=== PATIENT | male | born 1940 | race Caucasian/White ===

== ENCOUNTER 2019-08-07 12:39 | Inpatient (IN) | payer MEDICARE, OTHER, SELFPAY ==
[2019-08-07] VITALS (10 sets, daily range): BP systolic 114–134; BP diastolic 65–74; PULSE 57–74; RESP 15–18; TEMP 36.6–37; O2SAT 92–98; BMI 26.6; BMI 25.8; BMI 25.9
--- NOTE | 2019-08-07 13:20 | CT_ITS ---
STUDY: CTA CHEST REASON FOR EXAM: Male, 79 years old. HEMOPTYSIS WITH LUNG CANCER. COPD RADIATION DOSAGE (If Supplied By Facility): CTDIvol = ( 11.76 ) mGy, DLP = ( 657.06 ) mGycm TECHNIQUE: The examination was performed with the intravenous administration of 100 ML ISOVUE 370. Post-processing of the angiographic images was performed, with multiplanar reformation and 3D reconstruction. Individualized dose optimization techniques were used for this CT. COMPARISON: None. FINDINGS: Small filling defects are seen in the subsegmental branches of the right lower lobe pulmonary artery. Normal thoracic aorta and visualized great vessels. There is no demonstrated aortic dissection. Normal heart and pericardium. There are visualized mediastinal lymph nodes, which are within normal size limits, and with normal morphology. Slightly enlarged right hilar lymph node. Normal visualized trachea and bronchi. Minimal increased markings at the lung bases suggestive scarring. There is a 6.8 cm x 6 cm soft tissue mass in the right upper lobe adjacent to the right paratracheal region. Mild degree of scarring is seen surrounding the mass lesion. Normal pleura. Normal chest wall structures. There are degenerative changes of thoracic spine. 31.7 cm nodule in the crux of the left adrenal gland. There is also evidence of a 1.3 cm nodule in the crux of the right adrenal gland. Moderate sized hiatal hernia. CT/CTA Chest W/WO Contrast IMPRESSION: Small filling defects in the subsegmental branches of the right lower lobe pulmonary artery. 6.8 cm x 6 mL soft tissue mass in the right upper lobe adjacent to the right paratracheal region. Bilateral adrenal nodules. Electronically Signed: Steve Solares, at 14:55 EDT , Service support ,
--- NOTE | 2019-08-07 13:21 | ED.DCSUM_ITS ---
History of Present Illness Chief Complaint: GI Bleed Detail of Chief Complaint: Hemoptysis Informant: Patient Onset: Today Current Severity: Mild Maximum Severity: Mild Narrative: Patient is a history of lung cancer and is followed with Dr. Cosme. Patient reports developing hemoptysis today. He has had some blood and some blood mixed with mucus. He denies chest pain or shortness of breath. Patient states he had similar symptoms last year that resolved after being put on Levaquin. Patient is currently on Eliquis. - Past Medical History (1) A-fib Status: Chronic (2) Hypertension Status: Chronic (3) High cholesterol Status: Chronic (4) H/O heart artery stent Status: Chronic (5) Asthma Status: Chronic (6) COPD (chronic obstructive pulmonary disease) Status: Chronic (7) Lung cancer Status: Chronic Past Medical History - Allergies and Home Meds Allergies/Adverse Reactions: Allergies No Known Allergies Allergy (Verified 08/07/19 12:43) Primary Care Physician: Satish Knott MD [NON-STAFF] - Doctors: Dr. Cosme Prior records reviewed: Yes Lives: Spouse/ Significant Other Smoking Status: Former smoker Review of Systems General: Denies: Chills, Fever Eyes: Denies: Visual changes - bilaterally ENT: Denies: Bilateral ear pain Cardiovascular: Denies: Chest pain, Palpitations Respiratory: Reports: Cough, Sputum. Denies: Dyspnea Genitourinary: Denies: Dysuria Neurological: Denies: Headache Allergy: Denies: Uticaria Physical Exam Vital Signs/Narrative: Vital Signs Temp Pulse Resp BP Pulse Ox 08/07/19 13:11 63 16 117/71 97 08/07/19 12:40 98.0 F 74 16 131/74 H Inital Vital Signs reviewed: Yes General: Well nourished, Well developed Head: Normocephalic ENT: Moist mucous membranes Neck: Supple Cardiovascular: Regular rate, Regular rhythm Respiratory: No distress, CTA bilaterally Abdomen: Soft, Nontender, Normal bowel sounds Skin: Normal color Neurological: Alert, Oriented x3 Psychological: Normal affect Diagnostic/Tx/Re-eval Impressions Chest CTA 08/07/19 13:20 IMPRESSION: Small filling defects in the subsegmental branches of the right lower lobe pulmonary artery. 6.8 cm x 6 mL soft tissue mass in the right upper lobe adjacent to the right paratracheal region. Bilateral adrenal nodules. Electronically Signed: Steve Solares, at 14:55 EDT , Service support , 08/07/19 13:20 CTA Chest W/WO Contrast [CT] Stat Laboratory Results 08/07/19 08/07/19 08/07/19 13:30 13:30 13:30 WBC 7.0 RBC 2.77 L Hgb 8.9 L Hct 28.6 L MCV 103.2 H MCH 32.1 H MCHC 31.1 L RDW Std Deviation 76.0 H RDW Coeff of Shaheen 20.4 H Plt Count 277 MPV 10.3 Immature Gran % (Auto) 0.600 Neut % (Auto) 71.9 H Lymph % (Auto) 13.6 L White % (Auto) 11.5 H Eos % (Auto) 1.4 Baso % (Auto) 1.0 Absolute Neuts (auto) 5.0 Absolute Lymphs (auto) 0.95 Nucleated RBC % 0 Differential Comment SCANNED Anisocytosis 2+ Microcytosis 1+ Macrocytosis 1+ PT 15.4 H INR 1.2 APTT 31.7 Sodium 137 Potassium 4.6 Chloride 106 Carbon Dioxide 26.0 Anion Gap 5 BUN 25 H Creatinine 1.00 Estim Creat Clear Calc 59.90 Est GFR (MDRD) Af Amer 93 Est GFR (MDRD) Non-Af 77 BUN/Creatinine Ratio 25.0 H Glucose 101 Calcium 8.8 - Medical Decision Making She has been monitored on manager cardiac cath. O2 sats are stable. He continues to have coughing with some bloody sputum. Test results are discussed with the patient. He denies missing any doses of Eliquis. I spoke with patient's oncologist, Dr. Cosme. He is concerned that if the CT scan findings do reveal true acute PE, he has failed Eliquis therapy. I spoke with Dr. Solares. He states these are small subsegmental areas where the vessel did not feel fully. He is not convinced these are acute PEs. After discussion with Dr. Cosme we agreed most conservative course of treatment would be observation in the hospital overnight. We will stop his aspirin and try to control cough. He would likely need to be seen by pulmonary for possible scope. I will speak with hospitalist. ED Disposition - Plan for ED Patient: Disposition: Acute Care Hospital [facility] Diagnosis: Hemoptysis Referrals: Satish Knott MD [NON-STAFF] -
[2019-08-07 13:42] LABS: Absolute Lymphocyte Count 0.95 X10^3/uL (0.83-4.51); Basophil# 0.07 X10^3/uL; Eosinophils% 1.4 % (0-5); Hematocrit 28.6 % (40-54); Hemoglobin 8.9 g/dL (13.0-16.5); Lymphocyte # 0.95 X10^3/ul (4.0); Lymphocyte % 13.6 % (19-41); Mean Corp Hgb Conc 31.1 g/dL (32-36); Mean Corpuscular Hgb 32.1 pg (27.0-32.0); Mean Corpuscular Volume 103.2 fL (80-94); Mean Platelet Vol. 10.3 fl (6.2-12.0); Monocyte% 11.5 % (0-10); NRBC Flagged by Analyzer 0 % (0-5); Neutrophil % 71.9 % (47-70); POSITIVE MORPHOLOGY YES; Platelet Count 277 K/mm3 (150-450); RBC Distribution Width CV 20.4 % (11.6-14.6); Red Blood Count 2.77 M/mm3 (4.6-6.2)
[2019-08-07 13:43] LABS: Differential Indicated SCAN CRITERIA MET
[2019-08-07] MEDS: 0.9% Normal Saline 1,000 ML 150 ML IV (13:47)
[2019-08-07 13:53] LABS: International Normalized Ratio 1.2; Prothrombin Time (Protime)PT. 15.4 SECONDS (11.7-14.9)
[2019-08-07 13:54] LABS: Partial Thromboplast Time 31.7 Seconds (24.1-36.2)
[2019-08-07 14:03] LABS: Differential Comment SCANNED
[2019-08-07 14:04] LABS: Anisocytosis 2+; Macrocytosis 1+; Microcytosis 1+
[2019-08-07 14:05] LABS: Anion Gap 5 (5-15); BUN 25 mg/dL (7-18); Calcium,Total 8.8 mg/dL (8.5-10.1); Chloride 106 mmol/L (98-107); EST Glomerular Filtration Rate 77 mL/min (>60); Est Glom Filt Rate - Afr Amer 93 mL/min (>60); Glucose 101 mg/dL (74-106); Potassium 4.6 mmol/L (3.5-5.1); Sodium Level 137 mmol/L (136-145)
--- NOTE | 2019-08-07 15:51 | NURSING ---
DR CULLEN FOR DR PAYNE
--- NOTE | 2019-08-07 16:13 | NURSING ---
MED SURG OBS SUBHASH HEMOPTYSIS
--- NOTE | 2019-08-07 16:16 | PCM.HP.STD ---
Problem List (1) Hemoptysis Status: Acute (2) A-fib Status: Chronic (3) Asthma Status: Chronic (4) COPD (chronic obstructive pulmonary disease) Status: Chronic (5) H/O heart artery stent Status: Chronic (6) High cholesterol Status: Chronic (7) Hypertension Status: Chronic (8) Lung cancer Status: Chronic History of Present Illness Date of Admission: 08/07/19 Chief Complaint: Hemoptysis today The patient is a 79 year old M gentleman, 50 pack years of his smoking, quit about 1 and half years other comorbidities including chronic A. fib on Eliquis came to ER for hemoptysis today. Patient was seen by Dr. 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 He was supposed to start chemo and radiation. Patient already had 5 cycles of chemo and radiation after diagnosis of small lung cancer in March 2019. Today, patient had hemoptysis on coughing. Patient had similar symptoms last year and resolved on Levaquin. Last 2 to 3 weeks is having clear mucus discharge from nose and sinuses. Denies fever or chills, chronic persistent cough, shortness of breath or chest pain. In ER, CTPA was done which showed 6.8 x 6 cm soft tissue mass in right upper lobe adjacent to right paratracheal region. It also shows enlarged right hilar node with mild compression of right main bronchus. Small filling defect possibly subsegmental branches of right lower lobe but nothing significant as per ER physician when she talked to radiologist Dr. Sevilla. ER physician discussed with Dr. Castaneda and horticultural specialty grower Dr. Avila. In ED, vital signs stable. Pulse ox 95% on room air. No tachycardia or tachypnea. Past Medical History Past Medical History (Chronic Problems): Chronic Problems A-fib (Chronic) Hypertension (Chronic) High cholesterol (Chronic) H/O heart artery stent (Chronic) Asthma (Chronic) COPD (chronic obstructive pulmonary disease) (Chronic) Lung cancer (Chronic) Allergies No Known Allergies Allergy (Verified 08/07/19 12:43) Home Medications: Ambulatory Orders Medication Instructions Recorded Amlodipine [Norvasc] 10 mg PO DAILY 08/07/19 Apixaban [Eliquis] 5 mg PO BID 08/07/19 Aspirin [Aspirin, Baby] 81 mg PO DAILY 08/07/19 Atorvastatin Calcium [Lipitor] 40 mg PO QHS 08/07/19 Fluticasone 0.05% [Flonase Nasal 1 spray IH DAILY 08/07/19 [place]] Lisinopril [Zestril] 10 mg PO DAILY 08/07/19 Sotalol HCl [Sotalol AF] 80 mg PO BID 08/07/19 Lives: Spouse/ Significant Other Smoking Status: Former smoker Tobacco Use: Cigars - *Family History Sibling History Items: Cancer - His sister had colorectal cancer. Patient did not had cancer history. Review of Systems Constitutional: Denies: Chills, Fever, Weight Change HEENT: Denies: Head Aches, Sinus Congestion, Sinus Drainage Cardiovascular: Denies: Chest Pain, Palpitations Respiratory: Reports: Cough, Hemoptysis. Denies: Pleuritic Pain, Shortness of breath at rest, Sputum production Gastrointestinal: Denies: Abdominal Pain, Nausea, Vomiting Genitourinary: Denies: Dysuria Musculoskeletal: Reports: Back Pain, Leg Pain, Muscle pain. Denies: Joint Tenderness Skin: Denies: Rash, Wounds Neurological: Denies: Numbness, Tingling, Focal weakness Psychiatric: Denies: Anxiety, Depression, Homicidal Ideations, Suicidal Ideations Hematologic/ Lymphatic: Denies: Easy Bruising, Easy Bleeding VTE Information - Inpt Only VTE Present on Admission: No VTE Mechan Device Prophylaxis: None VTE Pharm Prophylaxis ordered?: Yes Patient Problems: Active and Suspected Problems Hemoptysis (Acute) - Physical Exam Vitals/I&O's: Vital Signs Temp Pulse Resp BP Pulse Ox 98.0 F 67 15 132/71 H 95 08/07/19 12:40 08/07/19 15:04 08/07/19 15:04 08/07/19 15:04 08/07/19 15:04 Oxygen Delivery Method Room Air Weight: 180 lb Body Mass Index (BMI) 26.6 General: Alert, Oriented x3, Cooperative HEENT: Atraumatic, PERRLA, EOMI, Normocephalic Oral: No Gingival or Mucosal Lesions/ Ulcerations, Dry Mucosa, - - Dry blood stain in the posterior pharyngeal mucosa. Neck: Supple, No JVD, Negative Carotid Bruits Lungs: Clear to auscultation, No rhonchi, No wheeze, No rales, Diminished - Air entry diminished bilaterally Cardiovascular: Normal S1, Normal S2, No murmurs, Irregular Rate Abdomen: Bowel Sounds Present, Soft, Non Tender, Non-Distended Extremities: No edema, Capillary Refill Less than 3 Seconds Skin: No rashes, No breakdown Musculoskeletal: No Tenderness to Palpation of Joints or Extremities, Arthritic Changes Neurological: Cranial nerves II-XII grossly intact, Deep Tendon Reflexes 2+/4 and Symmetrical, Neuro grossly intact Psych/Mental Status: Normal Affect, Appropriate Laboratory Results 08/07/19 13:30: WBC 7.0, RBC 2.77 L, Hgb 8.9 L, Hct 28.6 L, MCV 103.2 H, MCH 32.1 H, MCHC 31.1 L, RDW Std Deviation 76.0 H, RDW Coeff of Shaheen 20.4 H, Plt Count 277, MPV 10.3, Immature Gran % (Auto) 0.600, Neut % (Auto) 71.9 H, Lymph % (Auto) 13.6 L, Citrus % (Auto) 11.5 H, Eos % (Auto) 1.4, Baso % (Auto) 1.0, Absolute Neuts (auto) 5.0, Absolute Lymphs (auto) 0.95, Nucleated RBC % 0, Differential Comment SCANNED, Anisocytosis 2+, Microcytosis 1+, Macrocytosis 1+ 08/07/19 13:30: PT 15.4 H, INR 1.2, APTT 31.7 08/07/19 13:30: Sodium 137, Potassium 4.6, Chloride 106, Carbon Dioxide 26.0, Anion Gap 5, BUN 25 H, Creatinine 1.00, Estim Creat Clear Calc 59.90, Est GFR (MDRD) Af Amer 93, Est GFR (MDRD) Non-Af 77, BUN/Creatinine Ratio 25.0 H, Glucose 101, Calcium 8.8 Current Medications Sodium Chloride () 1,000 mls @ 150 mls/hr IV .[id number] [facility] Last Admin: 08/07/19 13:47 Dose: 150 mls/hr Documented by: Assessment/Plan All Active Problems Hemoptysis (Acute) The patient is a 79 year old M gentleman, 50 pack years of his smoking, quit about 1 and half years other comorbidities including chronic A. fib on Eliquis came to ER for hemoptysis today. Patient was seen by Dr. 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 He was supposed to start chemo and radiation. Patient already had 5 cycles of chemo and radiation after diagnosis of small lung cancer in March 2019. Today, patient had hemoptysis on coughing. Patient had similar symptoms last year and resolved on Levaquin. Last 2 to 3 weeks is having clear mucus discharge from nose and sinuses. Denies fever or chills, chronic persistent cough, shortness of breath or chest pain. ER physician discussed with Dr. Castaneda and horticultural specialty grower Dr. Avila. In ED, vital signs stable. Pulse ox 95% on room air. No tachycardia or tachypnea. 1. Hemoptysis, acute probably secondary to Eliquis with history of small cell lung cancer on chemoradiation: Patient is being admitted in PCU. Will hold Eliquis for now. H&H is stable 8.9/28.6. No previous labs to compare with. As the patient has cough, will do respiratory panel. Monitoring H&H. Circuit Court Clerk is been consulted. Patient does not see any horticultural specialty grower outside hospital. 2. Small cell lung cancer, limited stage clinical T3, N2, M0, bilateral adnexal mass: As per patient's niece near the bedside adrenal mass are benign. Patient had CT-guided biopsy which showed small cell lung cancer. Patient had carboplatin etoposide for 4 cycles. In ER, CTPA was done which showed 6.8 x 6 cm soft tissue mass in right upper lobe adjacent to right paratracheal region. It also shows enlarged right hilar node with mild compression of right main bronchus. Small filling defect possibly subsegmental branches of right lower lobe but nothing significant as per ER physician when she talked to radiologist . Consulted Dr. Cosme 3. Chronic A. fib on Eliquis: Twelve-lead EKG ordered. Patient on sotalol patient follows Dr. Amaya. Denies chest pain, shortness of breath, coronary artery disease, stent or CHF. 4. 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 At that time patient was transferred to [facility] and MRI showed scattered areas of cortical infarction in the anterior cerebral artery distribution. Echo at that time showed preserved systolic function without intracardiac shunting. This note of Dr. Cosme. 5. Other comorbidities include hypertension, dyslipidemia: Home medication reconciliation done. Patient has 50 pack years of smoking, possible COPD but it seems patient never had PFT or seen by horticultural specialty grower. Continue atorvastatin DVT prophylaxis: Bilateral SCDs. Hold Eliquis until hemoptysis completely stops and H&H is stable. Advance directive/living will: It seems patient does not have living will. I talked directly to the patient and his niece near the bedside. Her niece is retired nurse. Patient does not want CPR, intubation, ventilator, central venous catheter, vasopressor if needed or DC shock if he goes in cardiac arrest or respiratory arrest or in terminal condition. He is okay with oxygen mask. He agrees for DNR CC arrest. Patient does not want artificial life support including intubation, tube feed, ventilator and/chest compression. Patient is DNR CC Arrest. Total time spent in [id number] encounter in discussion of advanced directive 16 minutes. Clinical Impression(s) from Imaging Studies Chest CTA 08/07/19 13:20 IMPRESSION: Small filling defects in the subsegmental branches of the right lower lobe pulmonary artery. 6.8 cm x 6 mL soft tissue mass in the right upper lobe adjacent to the right paratracheal region. Bilateral adrenal nodules. Laboratory Results 08/07/19 13:30: WBC 7.0, RBC 2.77 L, Hgb 8.9 L, Hct 28.6 L, MCV 103.2 H, MCH 32.1 H, MCHC 31.1 L, RDW Std Deviation 76.0 H, RDW Coeff of Shaheen 20.4 H, Plt Count 277, MPV 10.3, Immature Gran % (Auto) 0.600, Neut % (Auto) 71.9 H, Lymph % (Auto) 13.6 L, Citrus % (Auto) 11.5 H, Eos % (Auto) 1.4, Baso % (Auto) 1.0, Absolute Neuts (auto) 5.0, Absolute Lymphs (auto) 0.95, Nucleated RBC % 0, Differential Comment SCANNED, Anisocytosis 2+, Microcytosis 1+, Macrocytosis 1+ 08/07/19 13:30: PT 15.4 H, INR 1.2, APTT 31.7 08/07/19 13:30: Sodium 137, Potassium 4.6, Chloride 106, Carbon Dioxide 26.0, Anion Gap 5, BUN 25 H, Creatinine 1.00, Estim Creat Clear Calc 59.90, Est GFR (MDRD) Af Amer 93, Est GFR (MDRD) Non-Af 77, BUN/Creatinine Ratio 25.0 H, Glucose 101, Calcium 8.8 OBSV E&M: [id number] Initial observation care L3 Procedures: [id number] Advncd Care Plan 30 Min
--- NOTE | 2019-08-07 16:40 | EKG12_ITS ---
Test Reason : A FIB Blood Pressure : / mmHG Vent. Rate : 057 BPM Atrial Rate : 057 BPM P-R Int : 170 ms QRS Dur : 088 ms QT Int : 470 ms P-R-T Axes : 038 043 019 degrees QTc Int : 457 ms Sinus bradycardia Nonspecific ST abnormality Abnormal ECG No previous ECGs available Confirmed by DARREN WANG ([id number]), news copy editor AFSANEH DIOP ([id number]) on 08/09/2019 7:38:07 AM Referred By: SUBHASH Confirmed By:DARREN WANG
[2019-08-07] MEDS: 0.9% Normal Saline 1,000 ML 75 ML IV (19:03)
[2019-08-07 20:12] LABS: Hematocrit 27.6 % (40-54); Hemoglobin 8.7 g/dL (13.0-16.5)
[2019-08-07] MEDS: Atorvastatin Calcium 40 MG Tablet PO (21:55)
[2019-08-07] MEDS: Sotalol Hydrochloride 80 MG Tablet PO (21:55)
[2019-08-08] VITALS (7 sets, daily range): BP systolic 107–142; BP diastolic 63–74; PULSE 55–66; RESP 16–18; TEMP 36.5–36.9; O2SAT 93–96
[2019-08-08 02:22] LABS: Hematocrit 27.2 % (40-54); Hemoglobin 8.5 g/dL (13.0-16.5)
[2019-08-08 06:24] LABS: Absolute Lymphocyte Count 0.96 X10^3/uL (0.83-4.51); Absolute Neutrophil Count 3.1 X10^3/uL (2.0-7.7); Basophil# 0.07 X10^3/uL; Basophil% 1.4 % (0-1); Hematocrit 26.4 % (40-54); Hemoglobin 8.2 g/dL (13.0-16.5); Lymphocyte # 0.96 X10^3/ul (4.0); Lymphocyte % 19.2 % (19-41); Mean Corp Hgb Conc 31.1 g/dL (32-36); Mean Corpuscular Hgb 31.7 pg (27.0-32.0); Mean Corpuscular Volume 101.9 fL (80-94); Mean Platelet Vol. 10.6 fl (6.2-12.0); Monocyte# 0.79 X10^3/uL; Monocyte% 15.8 % (0-10); NRBC Flagged by Analyzer 0 % (0-5); Neutrophil # 3.05 X10^3/uL (2.7-7.7); Neutrophil % 60.8 % (47-70); POSITIVE MORPHOLOGY YES; Platelet Count 258 K/mm3 (150-450); RBC Distribution Width CV 20.5 % (11.6-14.6); RBC Distribution Width SD 75.4 fl (35.1-43.9); Red Blood Count 2.59 M/mm3 (4.6-6.2)
[2019-08-08 06:36] LABS: Differential Indicated SCAN CRITERIA MET
[2019-08-08 06:51] LABS: Anisocytosis 1+; Differential Comment SCANNED; Microcytosis RARE; Ovalocyte RARE; Polychromasia RARE
[2019-08-08 07:22] LABS: AST(SGOT) 17 U/L (15-37); Alanine Aminotransfer ALT/SGPT 22 U/L (16-61); Albumin, Serum 3.2 g/dL (3.2-5.0); Alkaline Phosphatase 76 U/L (45-117); Anion Gap 5 (5-15); BUN 20 mg/dL (7-18); BUN/Creat Ratio 23.5 RATIO (10-20); Bilirubin, Direct 0.16 mg/dL (0.00-0.30); Calcium,Total 8.4 mg/dL (8.5-10.1); Chloride 109 mmol/L (98-107); Cholesterol 136 mg/dL (200); Creatinine, Serum 0.85 mg/dL (0.70-1.30); EST Glomerular Filtration Rate 92 mL/min (>60); Est Glom Filt Rate - Afr Amer 111 mL/min (>60); Estimated Creatinine Clearance 70.47 ml/min; Globulin 3.5 g/dL (2.2-4.2); Glucose 94 mg/dL (74-106); High Density Lipoprotein 43 mg/dL; Potassium 3.8 mmol/L (3.5-5.1); Protein, Total 6.7 g/dL (6.4-8.2); Sodium Level 138 mmol/L (136-145); Thyroid Stim Hormone (TSH) 1.95 uIU/mL (0.358-3.74); Triglycerides 100 mg/dL; Very Low Density Lipoprotein 20 mg/dL (5-40)
--- NOTE | 2019-08-08 10:50 | PCM.CONS.PUL ---
Reason for Consult Date of Consultation: 08/08/19 Reason for Consultation: Hemoptysis History of Present Illness: The patient is a 79-year-old male, with a history as outlined below, who presented to the emergency department on August 06 with complaints of hemoptysis. The patient does have a history of limited stage small cell lung cancer and is currently being managed by Dr. Espinal at [facility]. He does report that in the days leading up to his hospitalization that he began to experience recurrent episodes of hemoptysis, which he described as dmitri blood. He did have an episode similar to this 1 year ago, which apparently resolved after he was treated with Levaquin. The patient was apparently supposed to begin radiation therapy in the very near future. He has been managed in the progressive care unit, after his Eliquis and aspirin were placed on hold. His blood counts have remained stable. The patient is maintaining appropriate oxygen saturations on room air. This afternoon, the patient reported to me that his hemoptysis is improving. Early this morning he coughed up some blood clots and has had very little coughing since that time. Overall, he does feel that his hemoptysis is resolving with time. Past Medical History Past Medical History (Chronic Problems): Chronic Problems A-fib (Chronic) Hypertension (Chronic) High cholesterol (Chronic) H/O heart artery stent (Chronic) Asthma (Chronic) COPD (chronic obstructive pulmonary disease) (Chronic) Lung cancer (Chronic) Allergies No Known Allergies Allergy (Verified 08/07/19 12:43) Home Medications: Ambulatory Orders Medication Instructions Recorded Amlodipine [Norvasc] 10 mg PO DAILY 08/07/19 Atorvastatin Calcium [Lipitor] 40 mg PO QHS 08/07/19 Fluticasone 0.05% [Flonase Nasal 1 spray IH DAILY PRN PRN 08/07/19 [place]] Lisinopril [Zestril] 10 mg PO DAILY 08/07/19 Sotalol HCl [Sotalol AF] 80 mg PO BID 08/07/19 Acetaminophen [Tylenol Tablet] 650 mg PO Q6H PRN PRN tab 08/08/19 Apixaban [Eliquis] 2.5 mg PO BID #30 tab 08/08/19 Guaifenesin/Codeine [Robitussin AC] 5 ml PO Q6H PRN PRN #1 bottle 08/08/19 Lives: Spouse/ Significant Other Smoking Status: Former smoker Tobacco Use: Cigarettes, Cigars - *Family History Sibling History Items: Cancer - His sister had colorectal cancer. Patient did not had cancer history. Review of Systems Constitutional: Denies: Chills, Fever Eyes: Denies: Blurred vision, Double vision HEENT: Reports: Difficulty Hearing Cardiovascular: Denies: Chest Pain, Palpitations Respiratory: Reports: Hemoptysis Gastrointestinal: Denies: Abdominal Pain, Nausea, Vomiting Genitourinary: Denies: Dysuria Musculoskeletal: Denies: Joint Pain, Joint Tenderness Skin: Denies: Rash, Wounds Neurological: Denies: Numbness, Tingling, Focal weakness Hematologic/ Lymphatic: Reports: Anemia, Hx of blood clot Objective: The patient's most recent lab work, culture data and imaging studies have all been personally reviewed. - Physical Exam Vitals/I&O's: Vital Signs Temp Pulse Resp BP Pulse Ox 97.7 F L 66 16 107/63 93 08/08/19 08:50 08/08/19 08:50 08/08/19 08:50 08/08/19 08:50 08/08/19 08:50 Oxygen Delivery Method Room Air Weight: 175 lb 3.2 oz Body Mass Index (BMI) 25.8 Intake and Output for Last 24 Hours 08/06/19 08/07/19 08/08/19 23:59 23:59 23:59 Intake Total 1010 / 1010 1000 / 1000 Balance 1010 / 1010 1000 / 1000 General: Alert, Oriented x3, Cooperative, No apparent distress HEENT: Atraumatic, Normocephalic, - - Extremely hard of hearing Oral: No Gingival or Mucosal Lesions/ Ulcerations Neck: Supple, No Nodes, Trachea Midline Lungs: No rhonchi, No wheeze, Rales Cardiovascular: Regular rate, Regular Rhythm, No murmurs Abdomen: Bowel Sounds Present, Soft, Non Tender Extremities: No clubbing, No cyanosis, No edema Skin: No breakdown Musculoskeletal: No Tenderness to Palpation of Joints or Extremities Lymphatic: No Cervical, Supraclavicular, or Inguinal Adenopathy Neurological: Cranial nerves II-XII grossly intact, Neuro grossly intact Psych/Mental Status: Alert and oriented to time, place, person, mood and affect Labs (Last 48 Hours) 08/07/19 08/07/19 08/07/19 13:30 13:30 13:30 WBC 7.0 RBC 2.77 L Hgb 8.9 L Hct 28.6 L MCV 103.2 H MCH 32.1 H MCHC 31.1 L RDW Std Deviation 76.0 H RDW Coeff of Shaheen 20.4 H Plt Count 277 MPV 10.3 Immature Gran % (Auto) 0.600 Neut % (Auto) 71.9 H Lymph % (Auto) 13.6 L [place] % (Auto) 11.5 H Eos % (Auto) 1.4 Baso % (Auto) 1.0 Absolute Neuts (auto) 5.0 Absolute Lymphs (auto) 0.95 Nucleated RBC % 0 Differential Comment SCANNED Polychromasia Anisocytosis 2+ Microcytosis 1+ Macrocytosis 1+ Ovalocytes PT 15.4 H INR 1.2 APTT 31.7 Sodium 137 Potassium 4.6 Chloride 106 Carbon Dioxide 26.0 Anion Gap 5 BUN 25 H Creatinine 1.00 Estim Creat Clear Calc 59.90 Est GFR (MDRD) Af Amer 93 Est GFR (MDRD) Non-Af 77 BUN/Creatinine Ratio 25.0 H Glucose 101 Calcium 8.8 Total Bilirubin Direct Bilirubin AST ALT Alkaline Phosphatase Total Protein Albumin Globulin Triglycerides Cholesterol LDL Cholesterol VLDL Cholesterol HDL Cholesterol TSH 08/07/19 08/08/19 08/08/19 20:00 01:56 05:20 WBC 5.0 RBC 2.59 L Hgb 8.7 L 8.5 L 8.2 L Hct 27.6 L 27.2 L 26.4 L MCV 101.9 H MCH 31.7 MCHC 31.1 L RDW Std Deviation 75.4 H RDW Coeff of Shaheen 20.5 H Plt Count 258 MPV 10.6 Immature Gran % (Auto) 0.800 Neut % (Auto) 60.8 Lymph % (Auto) 19.2 [place] % (Auto) 15.8 H Eos % (Auto) 2.0 Baso % (Auto) 1.4 H Absolute Neuts (auto) 3.1 Absolute Lymphs (auto) 0.96 Nucleated RBC % 0 Differential Comment SCANNED Polychromasia RARE Anisocytosis 1+ Microcytosis RARE Macrocytosis Ovalocytes RARE PT INR APTT Sodium Potassium Chloride Carbon Dioxide Anion Gap BUN Creatinine Estim Creat Clear Calc Est GFR (MDRD) Af Amer Est GFR (MDRD) Non-Af BUN/Creatinine Ratio Glucose Calcium Total Bilirubin Direct Bilirubin AST ALT Alkaline Phosphatase Total Protein Albumin Globulin Triglycerides Cholesterol LDL Cholesterol VLDL Cholesterol HDL Cholesterol TSH 08/08/19 05:20 WBC RBC Hgb Hct MCV MCH MCHC RDW Std Deviation RDW Coeff of Shaheen Plt Count MPV Immature Gran % (Auto) Neut % (Auto) Lymph % (Auto) [place] % (Auto) Eos % (Auto) Baso % (Auto) Absolute Neuts (auto) Absolute Lymphs (auto) Nucleated RBC % Differential Comment Polychromasia Anisocytosis Microcytosis Macrocytosis Ovalocytes PT INR APTT Sodium 138 Potassium 3.8 Chloride 109 H Carbon Dioxide 24.0 Anion Gap 5 BUN 20 H Creatinine 0.85 Estim Creat Clear Calc 70.47 Est GFR (MDRD) Af Amer 111 Est GFR (MDRD) Non-Af 92 BUN/Creatinine Ratio 23.5 H Glucose 94 Calcium 8.4 L Total Bilirubin 0.70 Direct Bilirubin 0.16 AST 17 ALT 22 Alkaline Phosphatase 76 Total Protein 6.7 Albumin 3.2 Globulin 3.5 Triglycerides 100 Cholesterol 136 LDL Cholesterol 73 VLDL Cholesterol 20 HDL Cholesterol 43 TSH 1.95 Microbiology 08/07/19 20:15 Mucosa - Nose Respiratory Panel (PCR) - Final Clinical Impression(s) from Imaging Studies Chest CTA 08/07/19 13:20 IMPRESSION: Small filling defects in the subsegmental branches of the right lower lobe pulmonary artery. 6.8 cm x 6 mL soft tissue mass in the right upper lobe adjacent to the right paratracheal region. Bilateral adrenal nodules. Electronically Signed: Steve Solares, at 14:55 EDT , Service support , Current Medications Acetaminophen (Tylenol) 650 mg PO Q6H PRN PRN PRN Reason: Pain Score 1-10/Temp > 100.7 F Albuterol Sulfate (Ventolin Aerosols) 2.5 mg INHALATION Q2H PRN PRN PRN Reason: SOB/Wheezing Amlodipine Besylate (Norvasc) 10 mg PO DAILY [facility]EL Atorvastatin Calcium (Lipitor) 40 mg PO QHS DANIEL Last Admin: 08/07/19 21:55 Dose: 40 mg Documented by: Dextrose (D50w Syringe) 0 gm IV X1 PRN; Protocol PRN Reason: Hypoglycemia Fluticasone Propionate (Flonase Nasal [place]) 1 spray NASAL DAILY PRN PRN PRN Reason: ALLERGIES Glucagon () 1 mg IM .X1 PRN PRN Reason: Hypoglycemia Lisinopril (Zestril) 10 mg PO DAILY [facility] Melatonin (Melatonin) 3 mg PO QHS PRN PRN PRN Reason: INSOMNIA Morphine Sulfate () 2 mg IV Q3H PRN PRN PRN Reason: Pain Score 6-10/10 Nitroglycerin (Nitrostat) 0.4 mg SUBLINGUAL Q5M PRN PRN Reason: CARDIAC/CHEST PAIN Oxycodone HCl (Oxyir) 5 mg PO Q4H PRN PRN PRN Reason: Pain Score 4-5/10 Senna/Docusate Sodium (Senokot-S, Carlyn-Colace) 2 tablet PO BID PRN PRN PRN Reason: Constipation Sodium Chloride () 10 - 40 ml IV UD PRN PRN Reason: SALINE FLUSH Sotalol HCl (Betapace (G)) 80 mg PO BID [facility] Last Admin: 08/07/19 21:55 Dose: 80 mg Documented by: Assessment/Plan All Active Problems Hemoptysis (Acute) RECOMMENDATIONS: 1. Continue to monitor for resolution of hemoptysis. 2. Continue to hold aspirin and Eliquis. 3. No indication for emergent bronchoscopy at this time. 4. If hemoptysis does not resolve or worsens in the next 24 hours, will consider bronchoscopic airway evaluation tomorrow. IMPRESSIONS: 1. Hemoptysis Appears to be secondary to concurrent use of aspirin and Eliquis. The patient's hemoptysis is improving with time. Blood counts are stable. The patient remains on room air. I do not see an indication for emergent bronchoscopy at this time. If the patient's hemoptysis does not resolve by tomorrow or if it becomes worse overnight, will consideration will be given to bronchoscopic airway evaluation tomorrow. 2. Chronic atrial fibrillation I would recommend that the patient's aspirin be discontinued completely. If hemoptysis resolves, he can likely be restarted on Eliquis tomorrow. 3. History of small cell lung cancer/hypertension/hyperlipidemia/nicotine dependency, currently in remission Complicates care, management, recovery and prognosis. Continue home medications as indicated and follow-up with Dr. Cosme of oncology. This note was generated with [employer] dictation software. It may contain incorrect words, spelling, and punctuation that were not noted in checking the note before signing. Inpatient E&M: 72137 Init Hosp L3
[2019-08-08] MEDS: Lisinopril 10 MG Tablet PO (11:16)
[2019-08-08] MEDS: amLODIPine 10 MG Tablet PO (11:16)
[2019-08-08] MEDS: Sotalol Hydrochloride 80 MG Tablet PO (11:16)
--- NOTE | 2019-08-08 12:49 | PCM.PN.HOSP ---
<Jimi Vega - Last Filed: 08/08/19 12:49> Patient Problems: Active and Suspected Problems Hemoptysis (Acute) Reason for Visit: Hemoptysis Subjective: Patient reports ongoing hemoptysis this morning. Coughing red blood into tissues, occasionally thicker clots, sometimes sputum. He has no chest pain, no shortness of breath, no palpitations, no heaviness, pressure, dizziness or lightheadedness. He states that he actually feels well, and is fairly active despite his cancer. He works part-time 3 days a week for 3 hours each day, sometimes he has some aching in his legs as a side effect from chemo when he is ambulating, however he is independent. Vitals/I&O's: Vital Signs Temp Pulse Resp BP Pulse Ox 97.7 F L 66 16 107/63 93 08/08/19 08:50 08/08/19 08:51 08/08/19 08:50 08/08/19 08:50 08/08/19 08:50 Oxygen Delivery Method Room Air Weight: 175 lb 3.2 oz Body Mass Index (BMI) 25.8 Intake and Output for Last 24 Hours 08/06/19 08/07/19 08/08/19 23:59 23:59 23:59 Intake Total 1010 / 1010 1000 / 1000 Balance 1010 / 1010 1000 / 1000 General: Alert, Oriented x3, Cooperative HEENT: Atraumatic, PERRLA, EOMI, Normocephalic Neck: Supple, No JVD, Negative Carotid Bruits Lungs: Normal air movement, Rales - Bilateral rails, lower barba Cardiovascular: Regular rate, No murmurs Abdomen: Bowel Sounds Present, Soft, Non Tender Extremities: No edema, Capillary Refill Less than 3 Seconds Skin: No rashes, No breakdown Musculoskeletal: No Tenderness to Palpation of Joints or Extremities Neurological: Cranial nerves II-XII grossly intact Psych/Mental Status: Normal Affect, Appropriate, Alert and oriented to time, place, person, mood and affect Microbiology Past 72 Hours 08/07/19 20:15 Mucosa - Nose Respiratory Panel (PCR) - Final Laboratory Results 08/07/19 13:30: WBC 7.0, RBC 2.77 L, Hgb 8.9 L, Hct 28.6 L, MCV 103.2 H, MCH 32.1 H, MCHC 31.1 L, RDW Std Deviation 76.0 H, RDW Coeff of Shaheen 20.4 H, Plt Count 277, MPV 10.3, Immature Gran % (Auto) 0.600, Neut % (Auto) 71.9 H, Lymph % (Auto) 13.6 L, [place] % (Auto) 11.5 H, Eos % (Auto) 1.4, Baso % (Auto) 1.0, Absolute Neuts (auto) 5.0, Absolute Lymphs (auto) 0.95, Nucleated RBC % 0, Differential Comment SCANNED, Anisocytosis 2+, Microcytosis 1+, Macrocytosis 1+ 08/07/19 13:30: PT 15.4 H, INR 1.2, APTT 31.7 08/07/19 13:30: Sodium 137, Potassium 4.6, Chloride 106, Carbon Dioxide 26.0, Anion Gap 5, BUN 25 H, Creatinine 1.00, Estim Creat Clear Calc 59.90, Est GFR (MDRD) Af Amer 93, Est GFR (MDRD) Non-Af 77, BUN/Creatinine Ratio 25.0 H, Glucose 101, Calcium 8.8 08/07/19 20:00: Hgb 8.7 L, Hct 27.6 L 08/08/19 01:56: Hgb 8.5 L, Hct 27.2 L 08/08/19 05:20: WBC 5.0, RBC 2.59 L, Hgb 8.2 L, Hct 26.4 L, MCV 101.9 H, MCH 31.7, MCHC 31.1 L, RDW Std Deviation 75.4 H, RDW Coeff of Shaheen 20.5 H, Plt Count 258, MPV 10.6, Immature Gran % (Auto) 0.800, Neut % (Auto) 60.8, Lymph % (Auto) 19.2, [place] % (Auto) 15.8 H, Eos % (Auto) 2.0, Baso % (Auto) 1.4 H, Absolute Neuts (auto) 3.1, Absolute Lymphs (auto) 0.96, Nucleated RBC % 0, Differential Comment SCANNED, Polychromasia RARE, Anisocytosis 1+, Microcytosis RARE, Ovalocytes RARE 08/08/19 05:20: Sodium 138, Potassium 3.8, Chloride 109 H, Carbon Dioxide 24.0, Anion Gap 5, BUN 20 H, Creatinine 0.85, Estim Creat Clear Calc 70.47, Est GFR (MDRD) Af Amer 111, Est GFR (MDRD) Non-Af 92, BUN/Creatinine Ratio 23.5 H, Glucose 94, Calcium 8.4 L, Total Bilirubin 0.70, Direct Bilirubin 0.16, AST 17, ALT 22, Alkaline Phosphatase 76, Total Protein 6.7, Albumin 3.2, Globulin 3.5, Triglycerides 100, Cholesterol 136, LDL Cholesterol 73, VLDL Cholesterol 20, HDL Cholesterol 43, TSH 1.95 Current Medications Acetaminophen (Tylenol) 650 mg PO Q6H PRN PRN PRN Reason: Pain Score 1-10/Temp > 100.7 F Albuterol Sulfate (Ventolin Aerosols) 2.5 mg INHALATION Q2H PRN PRN PRN Reason: SOB/Wheezing Amlodipine Besylate (Norvasc) 10 mg PO DAILY [facility] Last Admin: 08/08/19 11:16 Dose: 10 mg Documented by: Atorvastatin Calcium (Lipitor) 40 mg PO QHS [facility] Last Admin: 08/07/19 21:55 Dose: 40 mg Documented by: Dextrose (D50w Syringe) 0 gm IV X1 PRN; Protocol PRN Reason: Hypoglycemia Fluticasone Propionate (Flonase Nasal [place]) 1 spray NASAL DAILY PRN PRN PRN Reason: ALLERGIES Glucagon () 1 mg IM .X1 PRN PRN Reason: Hypoglycemia Lisinopril (Zestril) 10 mg PO DAILY [facility] Last Admin: 08/08/19 11:16 Dose: 10 mg Documented by: Melatonin (Melatonin) 3 mg PO QHS PRN PRN PRN Reason: INSOMNIA Morphine Sulfate () 2 mg IV Q3H PRN PRN PRN Reason: Pain Score 6-10/10 Nitroglycerin (Nitrostat) 0.4 mg SUBLINGUAL Q5M PRN PRN Reason: CARDIAC/CHEST PAIN Oxycodone HCl (Oxyir) 5 mg PO Q4H PRN PRN PRN Reason: Pain Score 4-5/10 Senna/Docusate Sodium (Senokot-S, Carlyn-Colace) 2 tablet PO BID PRN PRN PRN Reason: Constipation Sodium Chloride () 10 - 40 ml IV UD PRN PRN Reason: SALINE FLUSH Sotalol HCl (Betapace (G)) 80 mg PO BID DANIEL Last Admin: 08/08/19 11:16 Dose: 80 mg Documented by: STROKE Vital Signs/Narrative: Vital Signs Temp Pulse Resp BP Pulse Ox 08/08/19 08:51 66 08/08/19 08:50 97.7 F L 66 16 107/63 93 Medical Necessity - Tobacco Use Smoking Status: Former smoker Tobacco Use: Cigarettes, Cigars Assessment/Plan All Active Problems Hemoptysis (Acute) 1. Acute on chronic anemia secondary to hemoptysis-likely secondary to underlying small cell lung cancer and the fact that the patient is on Eliquis. Eliquis and aspirin held. recheck hemoglobin this afternoon. Consult to pulmonology and oncology. No shortness of breath. Respiratory panel is negative. No fever or leukocytosis, platelet count WNL. 2. Chronic atrial fibrillation-Eliquis stopped as above. Patient is on sotalol 3. Small cell lung cancer-patient of Dr. Cosme. Has completed 5 rounds of chemotherapy. CTPA showed 6.8 x 6 cm soft tissue mass right upper lobe adjacent to right paratracheal region, enlarged hilar node, compression of right main bronchus, small filling defect. 4. 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 Prior left-sided weakness that has resolved. 5. Hypertension-stable 6. Hyperlipidemia-statin. Off aspirin and Eliquis. 7. Former nicotine abuse-did have a [id number] smoking history, no documented COPD. DVT prophylaxis: SCDs Discharge planning-ongoing hemoptysis, continue to monitor H&H and await further recommendations per oncology/pulmonology. This patient was seen by Jimi Vega PA-C under the supervision of Doctor Rabia. <Nolan Camarillo - Last Filed: 08/08/19 17:12> Vitals/I&O's: Vital Signs Temp Pulse Resp BP Pulse Ox 98.5 F 60 18 111/63 94 08/08/19 15:15 08/08/19 15:21 08/08/19 15:15 08/08/19 15:15 08/08/19 15:15 Oxygen Delivery Method Room Air Weight: 79.469 kg Body Mass Index (BMI) 25.8 Intake and Output for Last 24 Hours 08/06/19 08/07/19 08/08/19 23:59 23:59 23:59 Intake Total 1010 / 1010 1000 / 1000 Balance 1010 / 1010 1000 / 1000 Microbiology Past 72 Hours 08/07/19 20:15 Mucosa - Nose Respiratory Panel (PCR) - Final Laboratory Results 08/07/19 20:00: Hgb 8.7 L, Hct 27.6 L 08/08/19 01:56: Hgb 8.5 L, Hct 27.2 L 08/08/19 05:20: WBC 5.0, RBC 2.59 L, Hgb 8.2 L, Hct 26.4 L, MCV 101.9 H, MCH 31.7, MCHC 31.1 L, RDW Std Deviation 75.4 H, RDW Coeff of Shaheen 20.5 H, Plt Count 258, MPV 10.6, Immature Gran % (Auto) 0.800, Neut % (Auto) 60.8, Lymph % (Auto) 19.2, [place] % (Auto) 15.8 H, Eos % (Auto) 2.0, Baso % (Auto) 1.4 H, Absolute Neuts (auto) 3.1, Absolute Lymphs (auto) 0.96, Nucleated RBC % 0, Differential Comment SCANNED, Polychromasia RARE, Anisocytosis 1+, Microcytosis RARE, Ovalocytes RARE 08/08/19 05:20: Sodium 138, Potassium 3.8, Chloride 109 H, Carbon Dioxide 24.0, Anion Gap 5, BUN 20 H, Creatinine 0.85, Estim Creat Clear Calc 70.47, Est GFR (MDRD) Af Amer 111, Est GFR (MDRD) Non-Af 92, BUN/Creatinine Ratio 23.5 H, Glucose 94, Calcium 8.4 L, Total Bilirubin 0.70, Direct Bilirubin 0.16, AST 17, ALT 22, Alkaline Phosphatase 76, Total Protein 6.7, Albumin 3.2, Globulin 3.5, Triglycerides 100, Cholesterol 136, LDL Cholesterol 73, VLDL Cholesterol 20, HDL Cholesterol 43, TSH 1.95 08/08/19 13:34: Hgb 8.4 L, Hct 27.1 L Current Medications Acetaminophen (Tylenol) 650 mg PO Q6H PRN PRN PRN Reason: Pain Score 1-10/Temp > 100.7 F Albuterol Sulfate (Ventolin Aerosols) 2.5 mg INHALATION Q2H PRN PRN PRN Reason: SOB/Wheezing Amlodipine Besylate (Norvasc) 10 mg PO DAILY [facility] Last Admin: 08/08/19 11:16 Dose: 10 mg Documented by: Atorvastatin Calcium (Lipitor) 40 mg PO QHS [facility] Last Admin: 08/07/19 21:55 Dose: 40 mg Documented by: Dextrose (D50w Syringe) 0 gm IV X1 PRN; Protocol PRN Reason: Hypoglycemia Fluticasone Propionate (Flonase Nasal [place]) 1 spray NASAL DAILY PRN PRN PRN Reason: ALLERGIES Glucagon () 1 mg IM .X1 PRN PRN Reason: Hypoglycemia Lisinopril (Zestril) 10 mg PO DAILY [facility] Last Admin: 08/08/19 11:16 Dose: 10 mg Documented by: Melatonin (Melatonin) 3 mg PO QHS PRN PRN PRN Reason: INSOMNIA Morphine Sulfate () 2 mg IV Q3H PRN PRN PRN Reason: Pain Score 6-10/10 Nitroglycerin (Nitrostat) 0.4 mg SUBLINGUAL Q5M PRN PRN Reason: CARDIAC/CHEST PAIN Oxycodone HCl (Oxyir) 5 mg PO Q4H PRN PRN PRN Reason: Pain Score 4-5/10 Senna/Docusate Sodium (Senokot-S, Carlyn-Colace) 2 tablet PO BID PRN PRN PRN Reason: Constipation Sodium Chloride () 10 - 40 ml IV UD PRN PRN Reason: SALINE FLUSH Sotalol HCl (Betapace (G)) 80 mg PO BID [facility] Last Admin: 08/08/19 11:16 Dose: 80 mg Documented by: STROKE Vital Signs/Narrative: Vital Signs Temp Pulse Resp BP Pulse Ox 08/08/19 15:21 60 08/08/19 15:15 98.5 F 62 18 111/63 94
[2019-08-08 13:46] LABS: Hematocrit 27.1 % (40-54); Hemoglobin 8.4 g/dL (13.0-16.5)
--- NOTE | 2019-08-08 17:12 | DCINST_ITS ---
- Discharge Diagnoses Current Active Problems: Current Active and Chronic Problems Hemoptysis (Acute) You will use the following diet at home:: Cardiac Your food should be the consistency of: Regular Your liquids should be the consistency of: Regular/Thin Discharge Activity: Return to Normal Activity Call your doctor if you observe: Dizziness, Fainting spells, - - increased blood in sputum, Additional Instructions: Have CBC checked at follow up. Allergies/Adverse Reactions: Allergies No Known Allergies Allergy (Verified 08/07/19 12:43) Medications to take at Discharge Amlodipine [Norvasc] 10 mg PO DAILY 08/07/19 Atorvastatin Calcium [Lipitor] 40 mg PO QHS 08/07/19 Fluticasone 0.05% [Flonase Nasal [place]] 1 spray IH DAILY PRN PRN 08/07/19 Lisinopril [Zestril] 10 mg PO DAILY 08/07/19 Sotalol HCl [Sotalol AF] 80 mg PO BID 08/07/19 Acetaminophen [Tylenol Tablet] 650 mg PO Q6H PRN PRN tablet 08/08/19 Apixaban [Eliquis] 2.5 mg PO BID #30 tab 08/08/19 Guaifenesin/Codeine [Robitussin AC] 5 ml PO Q6H PRN PRN #1 bottle 08/08/19 The following prescriptions were given: Apixaban [Eliquis] 2.5 mg PO BID #30 tab Transmission Status: Pending to [facility]/pharmacy #[id number] Guaifenesin/Codeine [Robitussin AC] 5 ml PO Q6H PRN PRN #1 bottle PRN Reason: Cough Transmission Status: Received by [facility]/pharmacy #[id number] Primary Care Physician: Satish Knott MD [NON-STAFF] - Please follow up with your Primary Care Physician in: 1-2 weeks Test Results: Test results from this visit will be discussed in further detail at your follow- up appointment, if applicable. Please Follow Up With: Kylie Cosme MD - radiation When: 1 day Proposed Discharge Date: 08/08/19
--- NOTE | 2019-08-08 17:14 | PCM.DC.SUM ---
<Jimi Vega - Last Filed: 08/08/19 17:14> Discharge Date and Diagnosis Date of Admission: 08/07/19 Date of Discharge: 08/08/19 - Primary Discharge Diagnosis Active and Suspected Problems Acute blood loss anemia 2/2 Hemoptysis, 2/2 small cell lung cancer and medication reaction (eliquis, aspirin) Chronic afib Hx CVA HTN HLD Former nicotine abuse - Secondary Discharge Diagnosis Chronic Problems A-fib (Chronic) Hypertension (Chronic) High cholesterol (Chronic) H/O heart artery stent (Chronic) Asthma (Chronic) COPD (chronic obstructive pulmonary disease) (Chronic) Lung cancer (Chronic) Hospital Course and Treatment Imaging Results: CT/CTA Chest W/WO Contrast IMPRESSION: Small filling defects in the subsegmental branches of the right lower lobe pulmonary artery. 6.8 cm x 6 mL soft tissue mass in the right upper lobe adjacent to the right paratracheal region. Bilateral adrenal nodules. Consults: Ba - oncology [place] - Pulm Operations: None Procedures: None Summary of Care Provided: Hospital Course: The patient is a 79 year old M with pmhx of small cell lung cancer patient of Dr. Cosme, afib, cva, HTN, HLD, former smoker, who presented to the ER with c/o hemoptysis x1 day. He had been coughing red blood, was taking eliquis and aspirin at home, and was found to be anemic in the ER with Hgb of 8.9. He had a CT chest which demonstrated his lung mass, small filling deficit, bilateral adrenal nodules. He was admitted to the PCU on tele with consults to oncology and pulmonology. His aspirin and eliquis was stopped. His hgb stabilized the following day, declining to 8.2 and rising back to 8.4. Oncology recommended stopping aspirin, continuing eliquis at a lower dose 2.5 bid, and discharge from the hospital so that the patient could have radiation the next day. He will need close monitoring of his CBC and follow up with Dr. Cosme tomorrow, follow up with his PCP in 1-2 weeks. The patient was discharged home in stable condition. This patient was seen by Jimi Vega PA-C under the supervision of Dr. Camarillo. [] - Physical Exam Vitals/I&O's: Vital Signs Temp Pulse Resp BP Pulse Ox 98.5 F 60 18 111/63 94 08/08/19 15:15 08/08/19 15:21 08/08/19 15:15 08/08/19 15:15 08/08/19 15:15 Oxygen Delivery Method Room Air Weight: 175 lb 3.186 oz Body Mass Index (BMI) 25.8 Intake and Output for Last 24 Hours 08/06/19 08/07/19 08/08/19 23:59 23:59 23:59 Intake Total 1010 / 1010 1000 / 1000 Balance 1010 / 1010 1000 / 1000 General: Alert, Oriented x3, Cooperative HEENT: Atraumatic, PERRLA, EOMI, Normocephalic Neck: Supple, No JVD, Negative Carotid Bruits Lungs: Clear to auscultation, Normal air movement Cardiovascular: Regular rate, No murmurs Abdomen: Bowel Sounds Present, Soft, Non Tender Extremities: No edema, Capillary Refill Less than 3 Seconds Skin: No rashes, No breakdown Musculoskeletal: No Tenderness to Palpation of Joints or Extremities Neurological: Cranial nerves II-XII grossly intact Psych/Mental Status: Normal Affect, Appropriate, Alert and oriented to time, place, person, mood and affect Microbiology Past 72 Hours 08/07/19 20:15 Mucosa - Nose Respiratory Panel (PCR) - Final Laboratory Results 08/07/19 20:00: Hgb 8.7 L, Hct 27.6 L 08/08/19 01:56: Hgb 8.5 L, Hct 27.2 L 08/08/19 05:20: WBC 5.0, RBC 2.59 L, Hgb 8.2 L, Hct 26.4 L, MCV 101.9 H, MCH 31.7, MCHC 31.1 L, RDW Std Deviation 75.4 H, RDW Coeff of [place] 20.5 H, Plt Count 258, MPV 10.6, Immature Gran % (Auto) 0.800, Neut % (Auto) 60.8, Lymph % (Auto) 19.2, [place] % (Auto) 15.8 H, Eos % (Auto) 2.0, Baso % (Auto) 1.4 H, Absolute Neuts (auto) 3.1, Absolute Lymphs (auto) 0.96, Nucleated RBC % 0, Differential Comment SCANNED, Polychromasia RARE, Anisocytosis 1+, Microcytosis RARE, Ovalocytes RARE 08/08/19 05:20: Sodium 138, Potassium 3.8, Chloride 109 H, Carbon Dioxide 24.0, Anion Gap 5, BUN 20 H, Creatinine 0.85, Estim Creat Clear Calc 70.47, Est GFR (MDRD) Af Amer 111, Est GFR (MDRD) Non-Af 92, BUN/Creatinine Ratio 23.5 H, Glucose 94, Calcium 8.4 L, Total Bilirubin 0.70, Direct Bilirubin 0.16, AST 17, ALT 22, Alkaline Phosphatase 76, Total Protein 6.7, Albumin 3.2, Globulin 3.5, Triglycerides 100, Cholesterol 136, LDL Cholesterol 73, VLDL Cholesterol 20, HDL Cholesterol 43, TSH 1.95 08/08/19 13:34: Hgb 8.4 L, Hct 27.1 L Current Medications Acetaminophen (Tylenol) 650 mg PO Q6H PRN PRN PRN Reason: Pain Score 1-10/Temp > 100.7 F Albuterol Sulfate (Ventolin Aerosols) 2.5 mg INHALATION Q2H PRN PRN PRN Reason: SOB/Wheezing Amlodipine Besylate (Norvasc) 10 mg PO DAILY [facility] Last Admin: 08/08/19 11:16 Dose: 10 mg Documented by: Atorvastatin Calcium (Lipitor) 40 mg PO QHS [facility] Last Admin: 08/07/19 21:55 Dose: 40 mg Documented by: Dextrose (D50w Syringe) 0 gm IV X1 PRN; Protocol PRN Reason: Hypoglycemia Fluticasone Propionate (Flonase Nasal [place]) 1 spray NASAL DAILY PRN PRN PRN Reason: ALLERGIES Glucagon () 1 mg IM .X1 PRN PRN Reason: Hypoglycemia Lisinopril (Zestril) 10 mg PO DAILY [facility] Last Admin: 08/08/19 11:16 Dose: 10 mg Documented by: Melatonin (Melatonin) 3 mg PO QHS PRN PRN PRN Reason: INSOMNIA Morphine Sulfate () 2 mg IV Q3H PRN PRN PRN Reason: Pain Score 6-10/10 Nitroglycerin (Nitrostat) 0.4 mg SUBLINGUAL Q5M PRN PRN Reason: CARDIAC/CHEST PAIN Oxycodone HCl (Oxyir) 5 mg PO Q4H PRN PRN PRN Reason: Pain Score 4-5/10 Senna/Docusate Sodium (Senokot-S, Carlyn-Colace) 2 tablet PO BID PRN PRN PRN Reason: Constipation Sodium Chloride () 10 - 40 ml IV UD PRN PRN Reason: SALINE FLUSH Sotalol HCl (Betapace (G)) 80 mg PO BID DANIEL Last Admin: 08/08/19 11:16 Dose: 80 mg Documented by: Discharge Diet: Low fat/ Low Cholesterol, 2000 mg Sodium Diet Discharge Activity: Return to Normal Activity Call your doctor if you observe: Dizziness, Fainting spells, - - increased blood in sputum, Home Medications: Medications to take at Discharge Amlodipine [Norvasc] 10 mg PO DAILY 08/07/19 Atorvastatin Calcium [Lipitor] 40 mg PO QHS 08/07/19 Fluticasone 0.05% [Flonase Nasal [place]] 1 spray IH DAILY PRN PRN 08/07/19 Lisinopril [Zestril] 10 mg PO DAILY 08/07/19 Sotalol HCl [Sotalol AF] 80 mg PO BID 08/07/19 Acetaminophen [Tylenol Tablet] 650 mg PO Q6H PRN PRN tab 08/08/19 Apixaban [Eliquis] 2.5 mg PO BID #30 tab 08/08/19 Guaifenesin/Codeine [Robitussin AC] 5 ml PO Q6H PRN PRN #1 bottle 08/08/19 Following Prescrptions Were Given to Patient: Apixaban [Eliquis] 2.5 mg PO BID #30 tab Transmission Status: Received by [facility]/pharmacy #[id number] Guaifenesin/Codeine [Robitussin AC] 5 ml PO Q6H PRN PRN #1 bottle PRN Reason: Cough Transmission Status: Received by [facility]/pharmacy #[id number] Primary Care Physician: Satish Knott MD [NON-STAFF] - Please follow up with your Primary Care Physician in: 1-2 weeks Please Follow Up With: Kylie Cosme MD - radiation When: 1 day Disposition: Home Minutes spent on discharge:: 40 Patient Condition:: Stable Medical Necessity - Tobacco Use Smoking Status: Former smoker Tobacco Use: Cigarettes, Cigars Meaningful Use Info Meaningful Use Diagnoses (Choose all that apply): None applicable <Nolan Camarillo - Last Filed: 08/09/19 15:12> Discharge Date and Diagnosis - Secondary Discharge Diagnosis Chronic Problems A-fib (Chronic) Hypertension (Chronic) High cholesterol (Chronic) H/O heart artery stent (Chronic) Asthma (Chronic) COPD (chronic obstructive pulmonary disease) (Chronic) Lung cancer (Chronic) Hospital Course and Treatment Summary of Care Provided: This patient was seen in conjunction with Jimi Vega PA-C . I have independently interviewed and examined the patient and reviewed pertinent historical, laboratory, and other data. Please refer to Jimi Vega PA-C note for details of this patient's presentation, findings, and recommendations. I have reviewed Jimi Vega PA-C note and concur with documented findings. In brief, patient is a 79-year-old gentleman with history of small cell lung cancer who presented with hemoptysis patient was admitted to monitored bed for further management Hospital course: As documented above - Physical Exam Vitals/I&O's: Vital Signs Temp Pulse Resp BP Pulse Ox 98.5 F 60 18 111/63 94 08/08/19 15:15 08/08/19 15:21 08/08/19 15:15 08/08/19 15:15 08/08/19 15:15 Oxygen Delivery Method Room Air Weight: 79.469 kg Body Mass Index (BMI) 25.8 Intake and Output for Last 24 Hours 08/07/19 08/08/19 08/09/19 23:59 23:59 23:59 Intake Total 1010 / 1010 1000 / 1000 Balance 1010 / 1010 1000 / 1000 Microbiology Past 72 Hours 08/07/19 20:15 Mucosa - Nose Respiratory Panel (PCR) - Final OBSV E&M: [id number] Observation care discharge
== END 2019-08-08 18:44 | disposition home or self-care (01) | DRG 204 ==
LOC: ED 15:45 → MS2 16:20 → PCU 08-08 06:28 → MS2 08-08 09:36 → PCU 08-08 09:36
PROVIDERS: Physician Assistant; Admitting Provider Internal Medicine; Emergency Provider Emergency Medicine; PCP Nurse Practitioner Family; Visit Provider Internal Medicine
DX: R04.2 Hemoptysis (principal); D68.32 Hemorrhagic disorder due to extrinsic circulating anticoagulants; I48.20 Chronic atrial fibrillation, unspecified; C34.90 Malignant neoplasm of unspecified part of unspecified bronchus or lung; D62 Acute posthemorrhagic anemia; T39.015A Adverse effect of aspirin, initial encounter; T45.525A Adverse effect of antithrombotic drugs, initial encounter; I10 Essential (primary) hypertension; E78.5 Hyperlipidemia, unspecified; Z66 Do not resuscitate; Z86.73 Personal history of transient ischemic attack (TIA), and cerebral infarction without residual deficits; Z87.891 Personal history of nicotine dependence; Z79.01 Long term (current) use of anticoagulants; Z79.899 Other long term (current) drug therapy
CPT/HCPCS: 36415; 71275; 80048; 80061; 80076; 84443; 85014; 85018; 85025; 85610; 85730; 87633; 93005; 97162; 97802; 99251; 99283; J7030; Q9967; G0463

== ENCOUNTER 2019-11-02 11:49 | Day surgery (SDC) | payer MEDICARE, OTHER, SELFPAY ==
[2019-08-07 17:06] VITALS: BMI 25.8
--- NOTE | 2019-11-01 17:50 | PCM.HP.BLA ---
History and Physical Date of Admission: 11/02/19 Joe Kang 1940 ? ? REFERRING PHYSICIAN: Kylie Cosme MD ? CHIEF COMPLAINT: Consult (Consult port placement) ? HPI: The patient is a 79 year old male who presents with small cell lung cancer. He is referred by his oncologist for placement of portacath. Denies previous clavicular or rib fractures. Denies history of deep venous thromboses of extremities. Denies previous central lines placement ? The patient has difficulty hearing ?? PAST MEDICAL HISTORY ? Arrhythmia ? ? Atrial fibrillation (HCC) 05/2011 ? Hearing loss ? ? Hyperlipidemia 12/2012 ? Hypertension ? ? PAST SURGICAL HISTORY ? 2D ECHO (EXEP) ? 06/24/2017 ? EF=55-60%, mild LVH, mod dilated LA, mild MVP, MR,TR, mod Diast dsyfun ? APPENDECTOMY ? ~1965 ? COLONOSCOPY ? 02/09/2016 ? one polyp, repeat in 5 yrs, Dr. Coleman ? HERNIA REPAIR HX ? ? ? bilateral ? VASECTOMY ? 1977 ? ? Current Outpatient Medications ? omeprazole (PRILOSEC) 20 mg capsule TAKE 2 CAPSULES BY MOUTH EVERY DAY ? cetirizine (ZYRTEC) 10 mg tablet Take 10 mg by mouth once daily. ? iron polysaccharide complex (FERREX-150) 150 mg iron capsule Take 1 capsule by mouth twice daily. ? promethazine (PHENERGAN) 25 mg tablet Take 1 tablet by mouth every 6 hours as needed. FOR NAUSEA ? atorvastatin (LIPITOR) 40 mg tablet Take 1 tablet by mouth once daily. ? amLODIPine (NORVASC) 10 mg tablet Take 10 mg by mouth once daily. ? fluticasone (FLONASE) 50 mcg/actuation nasal spray Use 1 [place] in each nostril once daily. ? lisinopril (ZESTRIL, PRINIVIL) 10 mg tablet Take 1 tablet by mouth once daily. ? apixaban (ELIQUIS) 5 mg tab tab(s) Take 1 tablet by mouth twice daily. From Regulator Tester Dr. Blackwood (Patient taking differently: Take 2.5 mg by mouth twice daily. From Regulator Tester Dr. Blackwood ) ? sotalol (BETAPACE) 80 mg tablet Take 1 tablet by mouth twice daily. ? acetaminophen (TYLENOL EXTRA STRENGTH) 500 mg tablet Take 1 tablet by mouth every 6 hours as needed for Pain. ? ? ALLERGIES: Patient has no known allergies. ? PERSONAL HISTORY: Tobacco Use ? Smoking status: Former Smoker ? ? Packs/day: 1.00 ? ? Years: 40.00 ? ? Pack years: 40.00 ? ? Types: Cigarettes ? ? Last attempt to quit: 08/05/2012 ? ? Years since quittin.2 ? Smokeless tobacco: Never Used Substance Use Topics ? Alcohol use: No ? Drug use: No ? FAMILY HISTORY ? Hypertension Mother ? ? Coronary Artery Disease Mother ? ? [place] ? Cancer Sister ? ? Colon Cancer Sister ? ? ? REVIEW OF SYSTEMS: CONSTITUTIONAL: ?No fevers, chills, nightsweats, unintended weight loss HEENT: ?Denies frequent or severe heaches, nasal congestion/sinus symptoms, problematic allergy problems. EYES: ?No diplopia or blurry vision. CARDIOVASCULAR: ?No chest pain, dyspnea, palpitations, orthopnea, PND, ankle edema. PULM: ?No dyspnea, unexplained cough. GI: ?No dysphagia/odynophagia, problematic reflux, constipation, diarrhea, changes in stool habits, hematochezia, melena. : ?No new urinary complaints, including dysuria, gross hematuria or pyuria. NEURO: ?No new balance problems, peripheral weakness/paresthesias or numbness of concern. MUSC-SKEL: ?No new joint pain, swelling, or erythema. PSY: ?No concerns regarding depression, anxiety or panic. INTEGUMENTARY: ?No new skin changes (rash, new or changing mole, new growth) ? PHYSICAL EXAMINATION: General: The patient is 79 year old male, well nourished, well hydrated in no acute distress. The patient has difficulty hearing, but also seem to have poor comprehensive skills as he continues to repeat the same questions, despite being given the same answers multiple times. VITALS: Pulse 66, temperature 36.2 ?C (97.2 ?F), weight 79.2 kg (174 lb 9.6 oz), SpO2 98 %. Body mass index is 26.35 kg/m?. Head ? Normocephalic. EOM intact with sclera clear and no icterus noted. Mouth with mucus membranes moist. Neck - supple with no jugular venous distention noted. Trachea is midline. Lungs ? clear to auscultation. Normal breath sounds. No rales/rhonchi/wheezing noted. No labored breathing noted, such as retractions. No cough heard. Heart ? normal S1 and S2 auscultated. No rubs/clicks/murmurs noted. Regular rate. Abdomen ? soft and benign. Normal bowel sounds. No abdominal bruits noted. Difficult to determine if any masses or organomegaly due to body habitus. Extremities ? no calf tenderness noted. No pitting edema noted. Skin ? normal skin integrity. Neurological ? gait normal, no focal deficits noted. Psych ? calm and appropriate ? IMPRESSION: lung cancer, need for IV access for chemotherapy ? PLAN: I have discussed the above with the patient. I have offered placement of portacath I have explained the procedure to the patient. I have counseled the patient as to the risks of the procedure, including but not limited to: infection, bleeding, injury to any blood vessels/nerves, scar tissue, injury to the lungs - pneumothorax and/or hemothorax, thromboses of blood vessels, non functioning of port, wound infections, complications of anesthesia, etc. ? the patient understands. The patient wishes to proceed.. ? The patient was offered the procedure of placement of a portacath at [facility].. The provider and patient have discussed in detail the risk of exposure to and/or potential harm posed by the COVID-19 virus with having a surgery/procedure at this time versus the risk of? delaying the surgery/procedure. It is not possible to know either the risk of delaying the surgery or procedure or chance of getting an infection with perfect accuracy, but a joint decision was made between the patient and the provider ?to proceed at this time with the scheduled surgery/procedure. ? I have answered all questions to the patient?s satisfaction and the patient has no further questions. Have arranged for procedure to be done on November 01. . 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 ? Gracie Coleman MD
[2019-11-02 10:43] LABS: Probe Check PASS; Specimen Processing Control PASS
[2019-11-02 12:13] VITALS: BP 153/74; PULSE 57; RESP 15; TEMP 36.3; O2SAT 99; BMI 25.4
[2019-11-02] MEDS: Lactated Ringers 1,000 ML 100 ML IV (12:27)
[2019-11-02] MEDS: Cefazolin 2 GM in 0.9% Normal Saline 100 ML IV (13:21)
--- NOTE | 2019-11-02 13:24 | PCM.DC.POR ---
Discharge Diet: No Restrictions Discharge Activity: Return to Normal Activity, May not drive while taking narcotic pain medications. Call your doctor if your incision/area has: Continuous Slow Oozing, Foul Smelling Discharge Call your doctor if you observe: Fever of 101 or Higher Additional Dressing/Incision Instructions:: Leave dressings in place. May get dressing wet. No soaking - no tub baths/swimming Allergies/Adverse Reactions: Allergies No Known Allergies Allergy (Verified 11/02/19 12:11) Medications to take at Discharge Amlodipine [Norvasc] 10 mg PO DAILY 08/07/19 Atorvastatin Calcium [Lipitor] 40 mg PO QHS 08/07/19 Fluticasone 0.05% [Flonase Nasal [place]] 1 spray IH DAILY PRN PRN 08/07/19 Lisinopril [Zestril] 10 mg PO DAILY 08/07/19 Sotalol HCl [Sotalol AF] 80 mg PO BID 08/07/19 Acetaminophen [Tylenol Tablet] 650 mg PO Q6H PRN PRN tab 08/08/19 Apixaban [Eliquis] 2.5 mg PO BID #30 tab 08/08/19 Guaifenesin/Codeine [Robitussin AC] 5 ml PO Q6H PRN PRN #1 bottle 08/08/19 Primary Care Physician: Yesenia Greer NP-C [Primary Care Provider] - Test Results: Test results from this visit will be discussed in further detail at your follow-up appointment, if applicable. Please Follow Up With: Gracie Coleman MD - call When: to be followed at hem/onc, if any problems please call
--- NOTE | 2019-11-02 13:25 | OP.PCM_ITS ---
Report of Operation Date of Procedure: 11/02/19 Pre-Operative Diagnosis: lung cancer, need for central IV access Post-Operative Diagnosis: same Surgery/Procedure Performed:: placement of permanent indwelling tunnelled catheter in right internal jugular vein with subcutaneous port Description of Surgical Findings:: Could not aspirate from left or right subclavian veins, could not access left internal jugular vein despite direct visualization using US guidance Type of Anesthesia:: Local MAC Anesthesiologist: Darling Lancaster Specimen's removed: none Estimated Blood Loss (mL): < 5 ml Fluids Replaced: 700 ml RL Description of Procedure: After informed consent was given, the patient was brought to the Operating Room. Appropriate time out protocol was followed. He was then placed in the supine position. He was then given anesthesia. The patient?s upper chest and neck were then prepped with a surgical skin preparation and sterile surgical drapes were placed. After proper landmarks were ascertained, the skin at the upper left chest area was then infiltrated with 1% xylocaine with epinephrine. A needle trocar was then inserted into the upper left chest area to access the left subclavian vein. However despite multiple attempts the left subclavian vein could not be accessed. Therefore the US machine and tranducer was brought up for real time US imaging. The transducer was placed at the left neck area. The left internal jugular vein was identified. Using the ultrasound transduce to guide, a needle trocar was then inserted into the left internal jugular vein. Venous blood was aspirated. A wire was then threaded into the left internal jugular vein, but could not be advanced beyond about 10 cm this was done under fluroroscopic guidance and there seemed to be an obstruction. Numerous attempts were made to advance the wire, but with no success. A reattempt was made to access the left internal jugular vein using US guidance, but met with the same results. Therefore, a right sided attempted at portacath placement was done. After proper landmarks were ascertained, the skin at the upper right chest area was then infiltrated with 1% xylocaine with epinephrine. A needle trocar was then inserted into the upper right chest area to access the right subclavian vein. Despite multiple attempted, the right subclavian vein could not be accessed. The ultrasound machine transducer was then utilized again. The transducer was placed at the right neck area. The right internal jugular vein was identified. Using the ultrasound transduce to guide, a needle trocar was then inserted into the right internal jugular vein. Venous blood was aspirated. A wire was then threaded into the right internal jugular vein and this easily passed. This was done under fluoroscopy and the wire was noted to advance down the SVC. , A small skin jomar was made with an 11 blade knife at the wire entrance site. The dilator with the introducer sheath attached was then placed over the wire into the right internal jugular vein via the Seldinger technique and this was visualized under fluoroscopy. The dilator and sheath were in proper position as visualized by fluoroscopy. The wire and dilator were then removed. The catheter was then threaded into the introducer sheath and was positioned with its tip at the junction of the superior vena cava and the right atrium as visualized under fluoroscopy. The catheter was flushed with a heparin saline mixture prior to placement. A subcutaneous pocket was then created in the upper right chest area. A transverse skin incision was made after the skin and subcutaneous tissues were infiltrated with local anesthetic. Blunt dissection w as then used to create a space large enough for placement of the subcutaneous port. Hemostasis was carefully controlled with electrocautery. The port was sutured to the subcutaneous fascia using vicryl suture at three sites. The catheter was then tunneled into the subcutaneous pocket from the neck insertion site. The excess catheter was transected. The catheter was then attached to the subcutaneous port using set up and charger?s guidelines. The port was then placed in the subcutaneous pocket and the sutures were ligated. The port was then accessed - there was good aspiration of blood and the port was flushed with heparinized saline easily. The subdermal incisional sites were reapproximated with interrupted vicryl suture. The skin was reapproximated with monocryl suture in a subcuticular fashion. Cavilon and steristrips were used for reinforcement of the skin closure and a sterile opsite dressing was applied. The patient was brought to the Recovery Room in stable condition. Grafts/Implants Used: Power Port MRI implantable Lot [id number], exp 2020-08-27 - Complications none noted - Admit VTE Documentation VTE Present on Admission: Yes VTE Mechan Device Prophylaxis: SCD's
[2019-11-02 14:32] VITALS: BP 127/78; BP 153/74; PULSE 61; RESP 14; TEMP 36.2; O2SAT 96
[2019-11-02 14:35] VITALS: BP 125/77; BP 153/74; PULSE 66; RESP 18; O2SAT 96
[2019-11-02 14:40] VITALS: BP 129/73; BP 153/74; PULSE 64; RESP 16; O2SAT 97
--- NOTE | 2019-11-02 14:45 | RAD_ITS ---
STUDY: X-RAY CHEST REASON FOR EXAM: Male, 79 years old. POST PORT PLACEMENT TECHNIQUE: Single AP portable view of the chest. COMPARISON: None. FINDINGS: A right-sided portacatheter has been placed. The tip is in the midportion of the superior vena cava. EKG electrodes are seen. There is evidence of a 4.9 cm x 6.9 cm right paratracheal mass. Mild increased linear markings at the left lung base suggests left lung atelectasis and/or scarring. There is no demonstrated pleural abnormality. Normal size heart. Normal mediastinum and kaitlin. Normal visualized pulmonary arteries. Normal visualized aortic arch and descending thoracic aorta. There are diffuse degenerative changes of the visualized thoracic spine. Normal visualized ribs, clavicles, and shoulders. There is no demonstrated abnormality of the visualized soft tissue structures of the upper abdomen. RAD/CXR for Line Placement IMPRESSION: The tip of the right portacatheter is in the midportion of the superior vena cava. Right paratracheal mass. Increased linear markings at the left lung base suggestive of linear atelectasis and/or scarring. Electronically Signed: Steve Solares, at 15:05 EDT , Service support ,
[2019-11-02 14:49] VITALS: BP 140/76; BP 153/74; PULSE 67; RESP 18; TEMP 36.2; O2SAT 98
[2019-11-02 15:16] VITALS: BP 153/74
== END 2019-11-02 15:28 | disposition home or self-care (01) ==
LOC: SDC 11:50 → AC 11:53
PROVIDERS: Anesthesiology; Internal Medicine Hematology & Oncology; PCP Nurse Practitioner Family; Referring Provider Surgery; Visit Provider Surgery
PROC: (CPT 36561; principal; 2019-11-02 13:20)
DX: Z45.2 Encounter for adjustment and management of vascular access device (principal); C34.90 Malignant neoplasm of unspecified part of unspecified bronchus or lung; C77.1 Secondary and unspecified malignant neoplasm of intrathoracic lymph nodes; Z11.59 Encounter for screening for other viral diseases; I10 Essential (primary) hypertension; I48.91 Unspecified atrial fibrillation; J44.9 Chronic obstructive pulmonary disease, unspecified; E78.00 Pure hypercholesterolemia, unspecified; Z86.73 Personal history of transient ischemic attack (TIA), and cerebral infarction without residual deficits; Z79.01 Long term (current) use of anticoagulants; Z79.899 Other long term (current) drug therapy; Z87.891 Personal history of nicotine dependence
CPT/HCPCS: 36561; 71045; 77001; 87635; G2023; J7050; J7120; C1788; U0003

== ENCOUNTER 2019-11-24 09:20 | Outpatient (CLI) | payer MEDICARE, OTHER, SELFPAY ==
[2019-11-24] VITALS (9 sets, daily range): BP systolic 95–133; BP diastolic 56–92; PULSE 59–70; RESP 16–18; TEMP 36.6–37.1; O2SAT 96–100
[2019-11-24] MEDS: Acetaminophen 325 MG Tablet 650 MG PO (10:27)
[2019-11-24] MEDS: 0.9% Saline Lock 10 ML Syringe IV ×2 (10:30→17:09)
== END 2019-11-24 17:13 | disposition home or self-care (01) ==
LOC: MEDOUTP 09:21 → MS3 09:30
PROVIDERS: PCP Nurse Practitioner Family; Referring Provider Internal Medicine Hematology & Oncology; Visit Provider Internal Medicine Hematology & Oncology
DX: D64.81 Anemia due to antineoplastic chemotherapy (principal); C34.90 Malignant neoplasm of unspecified part of unspecified bronchus or lung
CPT/HCPCS: 36430; 86850; 86900; 86901; 86920; 86922; J7040; P9016; A4216

== ENCOUNTER → 2019-12-28 10:52 | Outpatient (CLI) | payer MEDICARE, OTHER, SELFPAY ==
[2019-12-28 11:02] VITALS: BP 86/58; PULSE 83; RESP 16; TEMP 36.1; O2SAT 98; BMI 24.3
[2019-12-28] MEDS: Acetaminophen 325 MG Tablet 650 MG PO (11:16)
[2019-12-28] MEDS: 0.9% NaCl Peripheral Flush Adult/Peds IV ×2 (11:21→14:02)
[2019-12-28 11:56] VITALS: BP 101/65; PULSE 84; TEMP 36.5; O2SAT 100
[2019-12-28 13:08] VITALS: BP 103/68; PULSE 58; RESP 16; TEMP 36.1; O2SAT 99
[2019-12-28 14:05] VITALS: BP 102/63; PULSE 67; RESP 16; TEMP 36.6; O2SAT 99
== END ==
PROVIDERS: PCP Nurse Practitioner Family; Referring Provider Internal Medicine Hematology & Oncology; Visit Provider Internal Medicine Hematology & Oncology
DX: C34.90 Malignant neoplasm of unspecified part of unspecified bronchus or lung (principal); D64.81 Anemia due to antineoplastic chemotherapy; T45.1X5A Adverse effect of antineoplastic and immunosuppressive drugs, initial encounter; Y92.9 Unspecified place or not applicable
CPT/HCPCS: 36430; 86850; 86900; 86901; 86920; 86922; J7040; P9016; A4216

== ENCOUNTER 2020-01-19 09:18 | Outpatient (CLI) | payer MEDICARE, OTHER, SELFPAY ==
[2019-12-28 11:02] VITALS: BMI 24.3
[2020-01-19] VITALS (8 sets, daily range): BP systolic 94–116; BP diastolic 57–80; PULSE 59–85; RESP 16–18; TEMP 36.4–36.9; O2SAT 96–100
[2020-01-19] MEDS: Acetaminophen 325 MG Tablet 650 MG PO (10:42)
[2020-01-19] MEDS: 0.9% Saline Lock 10 ML Syringe IV ×2 (10:42→17:26)
--- NOTE | 2020-01-19 17:13 | NURSING ---
this nurse attempted to Contact Marion, pt's uke driver to tell her that he will be done with blood in 15 min or so. The phone rang but Marion did not picking tech. Left a message to have her call this nurse back.
== END 2020-01-19 17:28 | disposition home or self-care (01) ==
LOC: MEDOUTP 09:20 → MS3 09:21
PROVIDERS: PCP Nurse Practitioner Family; Referring Provider Internal Medicine Hematology & Oncology; Visit Provider Internal Medicine Hematology & Oncology
DX: D64.81 Anemia due to antineoplastic chemotherapy (principal); T45.1X5A Adverse effect of antineoplastic and immunosuppressive drugs, initial encounter; Y92.9 Unspecified place or not applicable; C34.90 Malignant neoplasm of unspecified part of unspecified bronchus or lung
CPT/HCPCS: 36430; 86850; 86900; 86901; 86920; 86922; J7040; P9016; A4216